=== PATIENT | male | born 1955 | race Caucasian/White ===

== ENCOUNTER 2020-09-14 15:46 | Outpatient (CLI) | payer BC, SELFPAY | END 2020-09-14 15:47 | disposition home or self-care (01) | LOC: ANHCOVIDVC 15:46 | PROVIDERS: PCP Internal Medicine | DX: Z23 Encounter for immunization (principal) | CPT/HCPCS: 0001A; 91300 ==

== ENCOUNTER 2020-10-05 15:44 | Outpatient (CLI) | payer BC, SELFPAY | END 2020-10-05 15:45 | disposition home or self-care (01) | LOC: ANHCOVIDVC 15:44 | PROVIDERS: PCP Internal Medicine | DX: Z23 Encounter for immunization (principal) | CPT/HCPCS: 0002A; 91300 ==

== ENCOUNTER 2024-04-21 07:00 | Outpatient (NON) | payer OTHER, SELFPAY | END 2024-04-21 07:01 | disposition home or self-care (01) | PROVIDERS: PCP Internal Medicine; Visit Provider Internal Medicine Gastroenterology | DX: K63.5 Polyp of colon (principal) | CPT/HCPCS: 88305 ==

== ENCOUNTER 2024-04-21 07:34 | Day surgery (SDC) | payer OTHER, SELFPAY ==
[2024-03-14 11:46] VITALS: BMI 29.0
[2024-04-04 14:32] VITALS: BMI 29.2
--- NOTE | 2024-04-21 06:54 | WPDANESEPPF ---
Anes - Initial Pre Proc Eval Procedure: Operation Date: 04/21/24 09:30 Proposed Procedures p Diagnostic Colonoscopy - Clark Villafuerte MD Date/Time: 04/21/24 06:54 Surgeon: Clark Villafuerte MD Pre Op Diagnosis: History of Colon Polyps Patient Data Age: 68 Gender: M Height: 1.83 m Weight: 97.8 kg Allergies Allergy/AdvReac Type Severity Reaction Status Date / Time No Known Allergies Allergy Verified 04/21/24 08:15 Home Medications Medication Instructions Recorded Confirmed Type atorvastatin 80 mg tablet 80 mg PO DAILY #90 tabs 11/16/23 04/21/24 Rx ezetimibe 10 mg tablet (Zetia) 10 mg PO DAILY #90 tabs 12/04/23 04/21/24 Rx fluticasone propionate 110 1 puff inhalation Q12H #12 grams 12/04/23 04/21/24 Rx mcg/actuation HFA aerosol inhaler sildenafil 100 mg tablet (Viagra) 100 mg PO DAILY PRN sexual 12/04/23 04/21/24 Rx activity #10 tabs carbidopa ER 25 mg-levodopa 100 mg 2 tablet PO .hs #180 tabs 03/18/24 04/21/24 Rx tablet,extended release fluticasone propionate 110 1 inh inhalation BID 04/04/24 04/21/24 History mcg/actuation HFA aerosol inhaler hydralazine 100 mg tablet 100 mg PO TID 04/04/24 04/21/24 History hydrochlorothiazide 25 mg tablet 25 mg PO DAILY 04/04/24 04/21/24 History valsartan 320 mg tablet 320 mg PO DAILY 04/04/24 04/21/24 History Patient hx anesthesia problems: none Family hx anesthesia problems: none Results Review: All pre-operative results and documents have been reviewed as part of the pre-operative evaluation. [facility] Past Medical History Medical History (Updated 12/04/23 @ 13:25 by Hitesh Pritchett APRN) Asthma Hx of colonic polyp Hyperlipidemia Hypertension Impaired glucose tolerance Restless leg syndrome Vitamin D deficiency Family History Family History Father No problems noted. Mother Carcinoma of colon Mother Family history of hypothyroidism Carcinoma of colon Patient's mother is Father No family history of cardiovascular disease Patient's father is in good health Social History Social History (Updated 04/21/24 @ 09:01 by Siva Walter DO) Smoking status: Never smoker Second hand tobacco smoke exposure: No Alcohol intake: current Drinks per week: 12 Alcohol use details: beer - 2-3/day Substance use: never Substance use type: does not use Lack of Transportation: No Lack of Food: Never True Current Housing: I Have Housing Concerned About Future Housing: No Difficulty Paying Gas/Electric Bills: No Difficulty Paying for Meds: No Currently Unemployed: No Education: Master's Degree or Higher Difficulty w/ Childcare or Family Care: No Living arrangements: alone Spiritual care concerns: No Anes - Eval Final PreProcedure Day of Procedure 04/21/24 06:54 Patient weight: overweight Heart: regular rate and rhythm Lungs: clear to auscultation Airway: Mallampati scale class II Neurological: alert and oriented Last oral intake: >/= 8 hours ASA classification: III Emergent: no Anesthetic plan: proceed Anesthesia type and monitoring: general GIVS and standard monitoring Results Review: All pre-operative results and documents have been reviewed as part of the pre-operative evaluation. Informed Consent: The patient's anesthetic plan and its attendant risks and benefits were discussed with the patient/family/POA. Questions were solicited and answers provided to the satisfaction of the patient/family/POA.
[2024-04-21 08:18] VITALS: BP 163/75; PULSE 95; RESP 20; TEMP 37.1; O2SAT 98
[2024-04-21] MEDS: LACTATED RINGERS 1,000 ML 150 ML IV CONT (08:30)
--- NOTE | 2024-04-21 08:57 | PM.HPGS ---
History of Present Illness History of Present Illness Consent: Risks, benefits, and alternatives have been discussed and questions answered. Patient agrees to proceed with procedure. Chief complaint: History of Colon Polyps Narrative: Moreno Bush Jr. is a 68 year old male presents for colonoscopy. Patient reports his current weight appetite and some are normal. Patient denies abdominal pain. He has had no bleeding. Family history is significant his father had colon cancer. Patient himself was identified as having colon polyps in 2016 in 2019. Review of Systems Review of Systems: All systems reviewed & are unremarkable except as noted in HPI and below PMFSH Past Medical History Medical History (Updated 12/04/23 @ 13:25 by Hitesh Pritchett APRN) Asthma Hx of colonic polyp Hyperlipidemia Hypertension Impaired glucose tolerance Restless leg syndrome Vitamin D deficiency Family History Family History Father No problems noted. Mother Carcinoma of colon Mother Family history of hypothyroidism Carcinoma of colon Patient's mother is Father No family history of cardiovascular disease Patient's father is in good health Social History Social History Smoking status: Never smoker Second hand tobacco smoke exposure: No Alcohol intake: current Drinks per week: 12 Alcohol use details: beer Substance use: never Substance use type: does not use Lack of Transportation: No Lack of Food: Never True Current Housing: I Have Housing Concerned About Future Housing: No Difficulty Paying Gas/Electric Bills: No Difficulty Paying for Meds: No Currently Unemployed: No Education: Master's Degree or Higher Difficulty w/ Childcare or Family Care: No Living arrangements: alone Spiritual care concerns: No Meds Home Medications and Allergies Home Medications Medication Instructions Recorded Confirmed Type atorvastatin 80 mg tablet 80 mg PO DAILY #90 tabs 11/16/23 04/21/24 Rx ezetimibe 10 mg tablet (Zetia) 10 mg PO DAILY #90 tabs 12/04/23 04/21/24 Rx fluticasone propionate 110 1 puff inhalation Q12H #12 grams 12/04/23 04/21/24 Rx mcg/actuation HFA aerosol inhaler sildenafil 100 mg tablet (Viagra) 100 mg PO DAILY PRN sexual 12/04/23 04/21/24 Rx activity #10 tabs carbidopa ER 25 mg-levodopa 100 mg 2 tablet PO .hs #180 tabs 03/18/24 04/21/24 Rx tablet,extended release fluticasone propionate 110 1 inh inhalation BID 04/04/24 04/21/24 History mcg/actuation HFA aerosol inhaler hydralazine 100 mg tablet 100 mg PO TID 04/04/24 04/21/24 History hydrochlorothiazide 25 mg tablet 25 mg PO DAILY 04/04/24 04/21/24 History valsartan 320 mg tablet 320 mg PO DAILY 04/04/24 04/21/24 History Allergies Allergy/AdvReac Type Severity Reaction Status Date / Time No Known Allergies Allergy Verified 04/21/24 08:15 Vital Signs Vital Signs - 24 hr 04/21/24 08:18 Temperature 98.8 F Pulse Rate 95 Respiratory Rate 20 Blood Pressure 163/75 H Pulse Oximetry 98 Oxygen Delivery Room Air Exam Narrative: Physical exam reveals patient to be alert. Vital signs stable. HEENT exam is unremarkable. Patient is anicteric. Lungs are clear to auscultation and percussion. Heart is without murmur. After sounds are present soft nontender with no organomegaly. Digital external rectal exam is normal. Assessment and Plan Assessment and plan (1) Family history of colon cancer: Code(s): Z80.0 - Family history of malignant neoplasm of digestive organs Status: Acute Assessment and Plan: Patient's father had colon cancer. Plan for surveillance colonoscopy at 5 year intervals. (2) Hx of colonic polyp: Code(s): Z86.010 - Personal history of colon polyps Status: Acute Assessment and Plan: Patient has been
[2024-04-21 10:09] VITALS: BP 110/71; PULSE 95; RESP 16; O2SAT 94
[2024-04-21 10:19] VITALS: BP 127/66; PULSE 83; RESP 18; O2SAT 100
[2024-04-21 10:29] VITALS: BP 134/76; PULSE 76; RESP 18; O2SAT 97
--- NOTE | 2024-04-21 12:43 | WPDANESPN ---
Anes - Prog Note Post-Op Date/Time: 04/21/24 12:43 Cardiovascular status: normal Respiratory status: normal Airway patency: baseline Mental status: baseline Post-Op hydration status: normal Vital Signs: Last Vital Signs Temp 37.1 C 04/21/24 08:18 Pulse 76 04/21/24 10:29 Resp 18 04/21/24 10:29 BP 134/76 04/21/24 10:29 Pulse Ox 97 04/21/24 10:29 O2 Del Method Room Air 04/21/24 10:29 Pain Score (VAS): 0 I/O: Intake & Output 04/20/24 04/21/24 04/21/24 23:59 07:59 15:59 Intake Total 650 Balance 650 Post-procedural complaints: none Patient Feedback: Patient satisfied with anesthetic care. Other Findings: Patient vital signs back to baseline. Patient denies nausea and vomiting. Patient's pain under control. Patient OK for discharge.
== END 2024-04-21 10:46 | disposition home or self-care (01) ==
PROVIDERS: PCP Internal Medicine; Visit Provider Internal Medicine Gastroenterology
PROC: 0DJD8ZZ Inspection of Lower Intestinal Tract, Via Natural or Artificial Opening Endoscopic (ICD-10-PCS; CPT 45378; principal; 2024-04-21 09:30)
DX: Z86.0100 Personal history of colon polyps, unspecified (principal); D12.0 Benign neoplasm of cecum; D12.2 Benign neoplasm of ascending colon; D12.5 Benign neoplasm of sigmoid colon; K64.8 Other hemorrhoids
CPT/HCPCS: 45385